=== PATIENT | female | born 1960 | race Caucasian/White ===

== ENCOUNTER 2017-06-06 11:25 | Emergency (ER) | payer SELFPAY ==
[~2017-06-06] VITALS: Ht 167.6 cm; Wt 100.0 kg
[~2017-06-06 11:25] MED LIST: AMOXICILLIN500 MG PO; CLONIDINE0.1 MG PO; LISINOP/HCTZ1 TA2 PO; LISINOP/HCTZ1 TAB PO
[2017-06-06 13:29] LABS: HEMATOCRIT 43.3 % (37.0-47.0); HEMOGLOBIN 14.6 g/dl (12.0-16.0); IMMATURE GRANULOCYTES 0.5 % (0.0-1.0); MEAN CELL VOLUME 95.8 fL CALC (80.0-100.0); MEAN CORPUSCULAR HGB 32.3 pG CALC (26.0-32.0); MEAN CORPUSCULAR HGB CONC 33.7 g/L CALC (32.0-36.0); NEUT# 5.32 thou/uL (2.00-7.15); RED BLOOD COUNT 4.52 mill/uL (4.20-5.60); RED CELL DISTRI WIDTH 13.2 % (11.5-15.5)
[2017-06-06 13:53] LABS: ALBUMIN 4.4 g/dL (3.2-5.0); ALKALINE PHOSPHATASE 91 u/l (38-126); ANION GAP 15 (6-22 (CALC)); BILIRUBIN, TOTAL 0.7 mg/dL (0.0-1.4); BUN 7 mg/dL (7-17); BUN/CREATININE RATIO 8 (12-20 (CALC)); CALCIUM 9.7 mg/dL (8.4-10.2); CARBON DIOXIDE 26 mmol/l (22-30); CHLORIDE 106 mmol/l (95-108); CREATININE 0.9 mg/dL (0.5-1.0); GFR > 60 ML/MIN (>=60 (CALC)); GFR FOR AFR.AMER. > 60 ML/MIN (>=60 (CALC)); GLUCOSE 108 mg/dL (65-105); POTASSIUM 4.5 mmol/l (3.5-5.1); SGOT/AST 59 u/l (14-36); SGPT/ALT 113 u/l (9-52); SODIUM 143 mmol/l (137-146)
[2017-06-06] MEDS ORDERED: AMOX/K CLAV875 M1 PO (14:49)
[2017-06-06 14:50] VITALS: BP 140/84
== END 2017-06-06 14:50 | disposition home or self-care (01) | DRG 305 ==
LOC: ED 11:25
PROVIDERS: Emergency Medicine
DX: I10 Essential (primary) hypertension (principal); J02.0 Streptococcal pharyngitis; Z91.14 Patient's other noncompliance with medication regimen

== ENCOUNTER 2017-10-12 00:13 | Observation (INO) | payer SELFPAY ==
[~2017-10-12] VITALS: Ht 167.6 cm; Wt 102.0 kg
[~2017-10-12 00:13] MED LIST changes: +AMOX/K CLAV875 M1 PO
[2017-10-12 00:54] LABS: HEMATOCRIT 44.9 % (37.0-47.0); HEMOGLOBIN 15.1 g/dl (12.0-16.0); IMMATURE GRANULOCYTES 0.3 % (0.0-1.0); MEAN CELL VOLUME 94.5 fL CALC (80.0-100.0); MEAN CORPUSCULAR HGB 31.8 pG CALC (26.0-32.0); MEAN CORPUSCULAR HGB CONC 33.6 g/L CALC (32.0-36.0); NEUT# 4.41 thou/uL (2.00-7.15); RED BLOOD COUNT 4.75 mill/uL (4.20-5.60)
[2017-10-12 01:26] LABS: ACT PARTIAL THROMBO TIME 29.5 SECONDS (20.0-32.5); ALBUMIN 4.6 g/dL (3.2-5.0); ALKALINE PHOSPHATASE 91 u/l (38-126); ANION GAP 22 (6-22 (CALC)); BILIRUBIN, TOTAL 0.3 mg/dL (0.0-1.4); BUN 14 mg/dL (7-17); BUN/CREATININE RATIO 16 (12-20 (CALC)); CARBON DIOXIDE 21 mmol/l (22-30); CHLORIDE 107 mmol/l (95-108); CREATININE 0.9 mg/dL (0.5-1.0); GFR > 60 ML/MIN (>=60 (CALC)); GFR FOR AFR.AMER. > 60 ML/MIN (>=60 (CALC)); INTERNATIONAL NORMALIZED RATIO 0.9 RATIO (0.7-1.3); PROTHROMBIN TIME 9.7 SECONDS (9.0-12.5); SGOT/AST 44 u/l (14-36); SGPT/ALT 64 u/l (9-52); SODIUM 147 mmol/l (137-146); TOTAL PROTEIN 7.5 g/dL (6.3-8.2)
[2017-10-12 01:38] LABS: MYOGLOBIN 37 ng/mL (0 - 62)
[2017-10-12 04:45] LABS: URINE BILIRUBIN - DIPSTICK NEGATIVE (NEGATIVE); URINE BLOOD DIPSTICK NEGATIVE (NEGATIVE); URINE CLARITY CLEAR; URINE COLOR YELLOW; URINE GLUCOSE - DIPSTICK NEGATIVE (NEGATIVE); URINE KETONE NEGATIVE (NEGATIVE); URINE LEUK ESTERASE NEGATIVE (NEGATIVE); URINE NITRITE - DIPSTICK NEGATIVE (Negative); URINE PH 5.5 (4.5-8.0); URINE PROTEIN - DIPSTICK NEGATIVE (NEG-TRACE); URINE SPECIFIC GRAVITY <=1.005; URINE UROBILINOGEN - DIPSTICK 0.2 E.U./dL (0.2)
[2017-10-12 04:51] LABS: BARBITURATES NEGATIVE (NEGATIVE); COCAINE NEGATIVE (NEGATIVE); METHADONE NEGATIVE (NEGATIVE); OXCYCODONE NEGATIVE (NEGATIVE); TETRAHYDROCANNABIONOL NEGATIVE (NEGATIVE); TRICYLIC ANTIDEPRESSANTS NEGATIVE (NEGATIVE)
[2017-10-12 07:16] VITALS: BP 120/61
[2017-10-12 08:38] LABS: IMMATURE GRANULOCYTES 0.4 % (0.0-1.0); MEAN CELL VOLUME 95.3 fL CALC (80.0-100.0); MEAN CORPUSCULAR HGB 32.1 pG CALC (26.0-32.0); MEAN CORPUSCULAR HGB CONC 33.7 g/L CALC (32.0-36.0); NEUT# 2.74 thou/uL (2.00-7.15); RED BLOOD COUNT 4.02 mill/uL (4.20-5.60); RED CELL DISTRI WIDTH 13.1 % (11.5-15.5)
[2017-10-12 08:45] LABS: HEMATOCRIT 38.3 % (37.0-47.0); HEMOGLOBIN 12.9 g/dl (12.0-16.0)
[2017-10-12 08:58] LABS: MAGNESIUM 1.8 mg/dL (1.6-2.3)
[2017-10-12 12:42] VITALS: BP 128/78
[2017-10-12 16:19] VITALS: BP 158/105
[2017-10-12 16:50] VITALS: BP 142/89
== END 2017-10-12 18:44 | disposition home or self-care (01) | DRG 313 ==
LOC: ED 00:13 → ED-I 02:04 → ED 02:18 → MS2 02:19
PROVIDERS: Emergency Medicine; ADMIT Internal Medicine; ATTEND Internal Medicine
DX: R07.9 Chest pain, unspecified (principal); E87.0 Hyperosmolality and hypernatremia; F10.129 Alcohol abuse with intoxication, unspecified; I10 Essential (primary) hypertension; M19.90 Unspecified osteoarthritis, unspecified site; R79.89 Other specified abnormal findings of blood chemistry; Z78.0 Asymptomatic menopausal state; Z82.49 Family history of ischemic heart disease and other diseases of the circulatory system
CPT/HCPCS: G0378

== ENCOUNTER 2020-09-22 17:32 | Emergency (ER) | payer OTHER ==
[~2020-09-22] VITALS: Ht 167.6 cm; Wt 100.0 kg
[2020-09-22 18:07] LABS: GFR 57 ML/MIN (>=60 (CALC)); GFR FOR AFR.AMER. > 60 ML/MIN (>=60 (CALC))
[2020-09-22 18:10] LABS: HEMATOCRIT 44.2 % (37.0-47.0); HEMOGLOBIN 14.6 g/dl (12.0-16.0); IMMATURE GRANULOCYTES 0.9 % (0.0-5.0); MEAN CELL VOLUME 93.1 fL CALC (80.0-100.0); MEAN CORPUSCULAR HGB 30.7 pG CALC (26.0-32.0); NEUT# 5.22 thou/uL (2.00-7.15); RED BLOOD COUNT 4.75 mill/uL (4.20-5.60); RED CELL DISTRI WIDTH 13.2 % (11.5-15.5)
[2020-09-22 18:29] LABS: ALKALINE PHOSPHATASE 69 u/l (38-126); ANION GAP 18 (6-22 (CALC)); BUN 9 mg/dL (7-17); BUN/CREATININE RATIO 11 (12-20 (CALC)); CARBON DIOXIDE 22 mmol/l (22-30); CHLORIDE 103 mmol/l (95-108); CREATININE 0.9 mg/dL (0.5-1.0); GFR > 60 ML/MIN (>=60 (CALC)); GFR FOR AFR.AMER. > 60 ML/MIN (>=60 (CALC)); POTASSIUM 3.7 mmol/l (3.5-5.1); SGOT/AST 33 u/l (14-36); SODIUM 140 mmol/l (137-146); TOTAL PROTEIN 7.8 g/dL (6.3-8.2)
[2020-09-22 18:30] LABS: BILIRUBIN, TOTAL 0.5 mg/dL (0.0-1.4)
[2020-09-22 19:31] LABS: URINE BILIRUBIN - DIPSTICK NEGATIVE (NEGATIVE); URINE BLOOD DIPSTICK NEGATIVE (NEGATIVE); URINE COLOR YELLOW; URINE GLUCOSE - DIPSTICK NEGATIVE (NEGATIVE); URINE KETONE NEGATIVE (NEGATIVE); URINE LEUK ESTERASE NEGATIVE (NEGATIVE); URINE NITRITE - DIPSTICK NEGATIVE (Negative); URINE PH 5.5 (4.5-8.0); URINE PROTEIN - DIPSTICK NEGATIVE (NEG-TRACE); URINE UROBILINOGEN - DIPSTICK 0.2 E.U./dL (0.2)
[2020-09-22 23:32] VITALS: BP 181/95
== END 2020-09-23 00:30 | DRG 552 ==
LOC: ED 17:32
PROVIDERS: Family Medicine
DX: S12.601A Unspecified nondisplaced fracture of seventh cervical vertebra, initial encounter for closed fracture (principal); I10 Essential (primary) hypertension; V43.52XA Car driver injured in collision with other type car in traffic accident, initial encounter
CPT/HCPCS: Q9967